=== PATIENT | female | born 1985 | race Caucasian/White ===

== ENCOUNTER 2018-07-05 11:15 | Inpatient (IN) ==
[2018-07-05] MEDS ORDERED: Acetaminophen 325 MG Tablet PO PRN (12:06)
[2018-07-05] MEDS ORDERED: Penicillin G Potassium Inj 5,000,000 UNIT in Sodium Chloride 0.9% Inj 100 ML IV.SIG ONE (12:06)
[2018-07-05] MEDS ORDERED: Penicillin G Potassium Inj 2,500,000 UNIT in Sodium Chlor 0.9% Inj 100 ML IV.SIG ONE (12:06)
--- NOTE | 2018-07-05 12:06 | ED ---
History of Present Illness Primary Care Physician: Angi Umaña MD Chief Complaint: I broke my water History of Present Illness: 33-year-old at 33 weeks presents complaining of spontaneous rupture of membranes after 10 today. Patient failed her 1 hour Glucola was in the process of completing the GTT and then subsequently ruptured membranes before the final collection. Otherwise her had been uneventful. She sees Dr. Bernardo Rubalcava is currently covering. 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 SKIN: Warm and dry. HEAD: Normocephalic and atraumatic. EYES: No scleral icterus. No injection or drainage. ENT: No nasal drainage noted. Mucous membranes pink. Airway patent. NECK: Supple, trachea midline. No JVD. CARDIOVASCULAR: Regular rate and rhythm without murmurs, gallops, or rubs. RESPIRATORY: Breath sounds equal bilaterally. No accessory muscle use. BREASTS: Bilateral exam showed no masses , no retractions, no nipple discharge. ABDOMEN/GI: Abdomen soft, non-tender, bowel sounds present, no rebound, no guarding Gravid to 33 weeks size Fundal Height: 33 GENITOURINARY: External Genitalia: intact and normal in appearance BUS glands: Unremarkable Sterile speculum exam copious amounts of clear amniotic fluid noted consistent with gross rupture Cervix: Moderate (forebag is palpated) Dilatation: 2 Effacement: 50% Station: -3 Presentation: Vertex by palpation Membranes: Grossly ruptured Uterine Contractions: Irregular every 3 FHT's: Category: 1 Variability: Moderate Decels: No EXTREMITIES: No cyanosis or edema. BACK: Nontender without obvious deformity. No CVA tenderness. NEUROLOGICAL: Awake and alert. Motor and sensory grossly within normal limits. Five out of 5 muscle strength in all muscle groups. Normal speech. Assessment and Plan - Diagnosis (1) premature rupture of membranes in third trimester Code(s): O42.913 - premature rupture of membranes, unspecified as to length of time between rupture and onset of labor, third trimester Status: Acute (2) 33 weeks gestation of Code(s): Z3A.33 - 33 weeks gestation of Status: Acute - Plan Discussed with Dr. Rubalcava Plan admission Betamethasone every 12 Magnesium sulfate should contractions continue Antibiotic prophylaxis NICU consultation Accu-Cheks Discharge Plan - Discharge Disposition Patient Disposition: ED Admit(ED Internal Use Only) - Discharge Condition Condition: Stable - Physicians Team ED Provider: Tia Toussaint Primary Care Provider: Angi Umaña - Discharge Instructions Print Language: Armenian
--- NOTE | 2018-07-05 12:21 | P.HPOB ---
[facility] Record Number: [id number] Date of : 89 Patient Status: Inpatient Attending Provider: Carly Rubalcava Date: 07/05/18 11:58 Initialization Date: 07/05/18 11:58 History of Present Illness Primary Care Physician: Angi Umaña MD Chief Complaint: I broke my water History of Present Illness: 33-year-old at 33 weeks presents complaining of spontaneous rupture of membranes after 10 today. Patient failed her 1 hour Glucola was in the process of completing the GTT and then subsequently ruptured membranes before the final collection. Otherwise her had been uneventful. She sees Dr. Bernardo Rubalcava is currently covering. 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 SKIN: Warm and dry. HEAD: Normocephalic and atraumatic. EYES: No scleral icterus. No injection or drainage. ENT: No nasal drainage noted. Mucous membranes pink. Airway patent. NECK: Supple, trachea midline. No JVD. CARDIOVASCULAR: Regular rate and rhythm without murmurs, gallops, or rubs. RESPIRATORY: Breath sounds equal bilaterally. No accessory muscle use. BREASTS: Bilateral exam showed no masses , no retractions, no nipple discharge. ABDOMEN/GI: Abdomen soft, non-tender, bowel sounds present, no rebound, no guarding Gravid to 33 weeks size Fundal Height: 33 GENITOURINARY: External Genitalia: intact and normal in appearance BUS glands: Unremarkable Sterile speculum exam copious amounts of clear amniotic fluid noted consistent with gross rupture Cervix: Moderate (forebag is palpated) Dilatation: 2 Effacement: 50% Station: -3 Presentation: Vertex by palpation Membranes: Grossly ruptured Uterine Contractions: Irregular every 3 FHT's: Category: 1 Variability: Moderate Decels: No EXTREMITIES: No cyanosis or edema. BACK: Nontender without obvious deformity. No CVA tenderness. NEUROLOGICAL: Awake and alert. Motor and sensory grossly within normal limits. Five out of 5 muscle strength in all muscle groups. Normal speech. Assessment and Plan - Diagnosis (1) premature rupture of membranes in third trimester Code(s): O42.913 - premature rupture of membranes, unspecified as to length of time between rupture and onset of labor, third trimester Status: Acute (2) 33 weeks gestation of Code(s): Z3A.33 - 33 weeks gestation of Status: Acute - Plan Discussed with Dr. Rubalcava Plan admission Betamethasone every 12 hours Magnesium sulfate should contractions continue Antibiotic prophylaxis with penicillin G and azithromycin as recommended by ACOG NICU consultation Accu-Cheks SCD's Ultrasound for position and estimated weight Discussed with patient plan of care-discussed with patient complications associated with labor Discharge Plan - Discharge Disposition Patient Disposition: ED Admit(ED Internal Use Only) - Discharge Condition Condition: Stable - Physicians Team ED Provider: Tia Toussaint Primary Care Provider: Angi Umaña - Discharge Instructions Print Language: Amharic
--- NOTE | 2018-07-05 12:23 | P.OBGPN ---
Ultrasound performed S IUP/vertex/posterior placenta/CELESTE 6.9/EFW 4 pounds 11 ounces or 2138 g
[2018-07-05] MEDS: Betamethasone Sod Phos/Acetate Inj 30 MG/5 ML Vial IM SCH (13:28)
[2018-07-05 13:29] LABS: Baso # (Auto) 0.1 th/mm3 (0.0-0.2); Baso % (Auto) 0.4 % (0.0-2.0); Eos # (Auto) 0.2 th/mm3 (0.0-0.4); Eos % (Auto) 1.1 % (0.0-4.0); Hematocrit 34.5 % (35.0-46.0); Hemoglobin 11.8 gm/dL (11.6-15.3); Lymph # (Auto) 2.7 th/mm3 (1.0-4.8); Lymph % (Auto) 20.3 % (9.0-44.0); Mean Corpuscular HGB Conc 34.3 % (32.0-36.0); Mean Corpuscular Hemoglobin 29.3 pg (27.0-34.0); Mean Corpuscular Volume 85.2 fL (80.0-100.0); Mean Platelet Volume 7.6 fL (7.0-11.0); Mono # (Auto) 1.1 th/mm3 (0.0-0.9); Mono % (Auto) 8.4 % (0.0-8.0); Neut # (Auto) 9.2 th/mm3 (1.8-7.7); Neut % (Auto) 69.8 % (16.0-70.0); Platelet Count 255 th/mm3 (150-450); Red Blood Count 4.04 mil/mm3 (4.00-5.30); Red Cell Distribution Width 14.3 % (11.6-17.2); White Blood Count 13.2 th/mm3 (4.0-11.0)
[2018-07-05] MEDS: Azithromycin Inj 500 MG in Sodium Chlor 0.9% Inj 250 ML IV.SIG SCH (13:30)
[2018-07-05 14:07] LABS: Bacteria,Urine Occasional /hpf; Bilirubin,Urine Negative (Negative); Clarity,Urine Cloudy (Clear); Color,Urine Yellow (Yellw/Straw); Glucose,Urine (UA) Negative (Negative); Leukocyte Esterase,Urine Trace (Negative); Nitrite,Urine Negative (Negative); Specific Gravity,Urine 1.011 (1.002-1.035); Squamous Epithelial Cell,Urine 12 /hpf (0-5)
[2018-07-05] MEDS ORDERED: Mag Sulf/Water 4 gm/100 ml 100 ML IV.SIG ONE ×2 (17:34→17:49)
[2018-07-05] MEDS ORDERED: Mag Sulf/Water 40 gm/1000 ml 40 GM/1,000 ML BAG IV.CONT ONE (17:49)
[2018-07-05] MEDS: Mag Sulf/Water 40 gm/1000 ml 40 GM/1,000 ML BAG IV.CONT SCH (18:39)
[2018-07-05] MEDS: Penicillin G Potassium Inj 2,500,000 UNIT in Sodium Chlor 0.9% Inj 100 ML IV.SIG SCH ×2 (18:39→22:03)
[2018-07-05] MEDS: Zolpidem Tartrate 5 MG Tablet PO PRN (22:03)
[2018-07-06] MEDS: Betamethasone Sod Phos/Acetate Inj 30 MG/5 ML Vial IM SCH (03:07)
[2018-07-06] MEDS: Penicillin G Potassium Inj 2,500,000 UNIT in Sodium Chlor 0.9% Inj 100 ML IV.SIG SCH ×6 (03:08→21:57)
[2018-07-06] MEDS: Prenatal Vit/Ca/Iron/Folic Acid Tablet PO SCH (08:42)
--- NOTE | 2018-07-06 11:18 | P.OBANTE ---
Subjective Interval History: Pt doing well, reports continued leaking, occ tightening, no pain, no other co Objective Vital Signs and I&O: Vital Signs 07/05/18 11:45 07/05/18 11:48 07/05/18 13:36 Temperature 98.6 F 98.9 F Pulse Rate 85 75 Respiratory Rate 18 Blood Pressure 123/67 102/84 07/05/18 13:38 07/05/18 18:45 07/05/18 18:47 Temperature 98.6 F Pulse Rate 87 Respiratory Rate 18 18 Blood Pressure 114/78 07/05/18 18:50 07/05/18 18:51 07/05/18 18:57 Temperature Pulse Rate 80 84 Respiratory Rate 18 18 Blood Pressure 122/72 118/70 07/05/18 19:01 07/05/18 19:02 07/05/18 19:58 Temperature Pulse Rate 85 90 78 Respiratory Rate 18 18 Blood Pressure 119/73 108/67 110/70 07/05/18 19:59 07/05/18 22:00 07/05/18 22:04 Temperature 98.4 F 98.5 F Pulse Rate 75 Respiratory Rate 18 Blood Pressure 96/62 L 07/06/18 01:00 07/06/18 02:09 07/06/18 03:00 Temperature 98.4 F Pulse Rate 78 92 H Respiratory Rate 18 Blood Pressure 103/54 L 94/57 L 97/50 L 07/06/18 04:00 07/06/18 05:00 07/06/18 06:00 Temperature Pulse Rate 87 90 Respiratory Rate 16 16 Blood Pressure 103/56 L 98/54 L 07/06/18 06:47 07/06/18 07:00 07/06/18 07:31 Temperature Pulse Rate 85 Respiratory Rate 16 16 Blood Pressure 96/52 L 07/06/18 07:32 07/06/18 08:00 07/06/18 08:41 Temperature 97.9 F Pulse Rate 85 Respiratory Rate 18 Blood Pressure 105/52 L 07/06/18 09:00 07/06/18 09:49 07/06/18 10:00 Temperature 97.7 F Pulse Rate 77 Respiratory Rate 16 Blood Pressure 105/68 Intake & Output 07/05/18 07/06/18 07/06/18 18:59 06:59 18:59 Intake Total 300 / 300 1100 / 1100 Balance 300 / 300 1100 / 1100 Weight 77.111 kg Intake: IV 300 / 300 1100 / 1100 LR 1000 mL Inj 1,000 ML @ 75 1000 / 1000 mls/hr IV.CONT .[id number] [facility] Rx# :[id number] Pfizerpen-G Inj 2,500,000 UNIT 300 / 300 100 / 100 In NS Inj 100 ML @ 200 mls/hr IV.SIG Q4H [facility] Rx#:[id number] Other: Weight On Admission 77.111 kg Lab and Micro Results: Laboratory Results - last 24 hr 07/05/18 07/05/18 07/05/18 12:15 12:35 12:45 WBC 13.2 H RBC 4.04 Hgb 11.8 Hct 34.5 L MCV 85.2 MCH 29.3 MCHC 34.3 RDW 14.3 Plt Count 255 MPV 7.6 Neut % (Auto) 69.8 Lymph % (Auto) 20.3 [place] % (Auto) 8.4 H Eos % (Auto) 1.1 Baso % (Auto) 0.4 Neut # (Auto) 9.2 H Lymph # (Auto) 2.7 [place] # (Auto) 1.1 H Eos # (Auto) 0.2 Baso # (Auto) 0.1 WBC Differential . Differential Comment Auto diff final POC Glucose 108 Urine Color Yellow Urine Clarity Cloudy H Urine pH 8.0 Ur Specific Margaret 1.011 Urine Protein 100 H Urine Glucose (UA) Negative Urine Ketones Negative Urine Occult Blood Moderate H Urine Nitrate Negative Urine Bilirubin Negative Urine Urobilinogen Less than 2 Ur Leukocyte Esterase Trace H Urine RBC 44 H Urine WBC 9 H Ur Squamous Epith Cells 12 Urine Bacteria Occasional H Micro UA Comment Culture indicated Ur Microscopic Review Not Reportable Urine Culture Comments Culture indicated 07/05/18 07/06/18 07/06/18 19:53 03:11 08:00 WBC RBC Hgb Hct MCV MCH MCHC RDW Plt Count MPV Neut % (Auto) Lymph % (Auto) [place] % (Auto) Eos % (Auto) Baso % (Auto) Neut # (Auto) Lymph # (Auto) [place] # (Auto) Eos # (Auto) Baso # (Auto) WBC Differential Differential Comment POC Glucose 129 H 123 H 113 H Urine Color Urine Clarity Urine pH Ur Specific Margaret Urine Protein Urine Glucose (UA) Urine Ketones Urine Occult Blood Urine Nitrate Urine Bilirubin Urine Urobilinogen Ur Leukocyte Esterase Urine RBC Urine WBC Ur Squamous Epith Cells Urine Bacteria Micro UA Comment Ur Microscopic Review Urine Culture Comments Physical Exam: GENERAL: Well-nourished, well-developed patient. CARDIOVASCULAR: Regular rate and rhythm without murmurs, gallops, or rubs. RESPIRATORY: Breath sounds equal bilaterally. No accessory muscle use. ABDOMEN/GI: Abdomen soft, non-tender. Fundus: [-] GENITOURINARY: External Genitalia: intact and normal in appearance Cervix: [-] Dilatation: [-] Effacement: [-] Station: [-] Presentation: [-] Membranes: [-] Uterine Contractions: ctx q 10-15 min FHT's: Category: baseline 150's, reactive, no decels Baseline: [-] Reactive: [-] Variability: [-] Decels: [-] EXTREMITIES: No cyanosis or edema, non-tender, without signs of DVT. Assessment and Plan - Plan SIUP at 33 wks 1 dy with PROM and some labor....responding to magnesium, steroids in x 2 doses, no sign infection, CELESTE 6 cm , vtx on us with good efw....plan is for magnesium until am, then dc...expectant management...fu CELESTE.
[2018-07-06] MEDS: Azithromycin Inj 500 MG in Sodium Chlor 0.9% Inj 250 ML IV.SIG SCH (12:23)
[2018-07-06] MEDS ORDERED: Docusate Sodium 100 MG Capsule PO SCH (13:00)
[2018-07-06] MEDS: Docusate Sodium 100 MG Capsule PO SCH (13:09)
[2018-07-06] MEDS: Mag Sulf/Water 40 gm/1000 ml 40 GM/1,000 ML BAG IV.CONT SCH (14:00)
[2018-07-06] MEDS: Zolpidem Tartrate 5 MG Tablet PO PRN (21:57)
[2018-07-07] MEDS: Penicillin G Potassium Inj 2,500,000 UNIT in Sodium Chlor 0.9% Inj 100 ML IV.SIG SCH ×6 (03:40→23:11)
--- NOTE | 2018-07-07 08:04 | P.OBANTE ---
Subjective Interval History: Pt feeling good, still leaking, no ctxs, good fm Objective Vital Signs and I&O: Vital Signs 07/06/18 08:41 07/06/18 09:00 07/06/18 09:49 Temperature Pulse Rate 77 Respiratory Rate 18 16 Blood Pressure 105/68 07/06/18 10:00 07/06/18 11:00 07/06/18 11:25 Temperature 97.7 F Pulse Rate 87 Respiratory Rate 16 Blood Pressure 102/64 07/06/18 11:27 07/06/18 12:26 07/06/18 13:00 Temperature 98.0 F Pulse Rate 98 H 97 H Respiratory Rate 16 14 Blood Pressure 100/63 97/54 L 07/06/18 14:03 07/06/18 14:05 07/06/18 14:50 Temperature Pulse Rate 105 H 103 H Respiratory Rate 16 Blood Pressure 111/53 L 07/06/18 14:56 07/06/18 16:00 07/06/18 16:58 Temperature 98.6 F Pulse Rate 90 Respiratory Rate 18 Blood Pressure 101/49 L 07/06/18 17:00 07/06/18 17:57 07/06/18 18:01 Temperature 98.3 F Pulse Rate 82 88 Respiratory Rate 16 Blood Pressure 104/56 L 106/62 07/06/18 18:38 07/06/18 19:00 07/06/18 19:52 Temperature Pulse Rate 86 Respiratory Rate 16 16 Blood Pressure 106/65 07/06/18 20:00 07/06/18 21:51 07/06/18 22:00 Temperature 98.3 F Pulse Rate 83 78 75 Respiratory Rate 16 16 Blood Pressure 104/58 L 95/51 L 99/56 L 07/06/18 23:00 07/07/18 00:00 07/07/18 02:00 Temperature Pulse Rate 102 H 96 H 81 Respiratory Rate 16 16 Blood Pressure 90/41 L 92/53 L 94/51 L 07/07/18 03:14 07/07/18 04:00 07/07/18 05:30 Temperature 98.2 F Pulse Rate 76 98 H Respiratory Rate 18 18 Blood Pressure 89/41 L 86/47 L 07/07/18 06:00 07/07/18 06:44 07/07/18 07:11 Temperature Pulse Rate 84 92 H Respiratory Rate 18 16 Blood Pressure 98/55 L 97/48 L Intake & Output 07/06/18 07/07/18 07/07/18 18:59 06:59 18:59 Intake Total 2650 / 2650 1200 / 1200 Balance 2650 / 2650 1200 / 1200 Intake: IV 2650 / 2650 1200 / 1200 LR 1000 mL Inj 1,000 ML @ 75 1000 / 1000 1000 / 1000 mls/hr IV.CONT .[id number] [facility] Rx# :[id number] Magnesium Sulfate/Water 40 gm/ 1000 / 1000 1000 ml Premix 40 gm In 1,000 ml @ 2 GM/HR 50 mls/hr IV.CONT Q24H [facility] Rx#:[id number] Azithromycin Inj 500 MG In NS 250 / 250 Inj 250 ML @ 250 mls/hr IV.SIG Q24H [facility] Rx#:[id number] Pfizerpen-G Inj 2,500,000 UNIT 400 / 400 200 / 200 In NS Inj 100 ML @ 200 mls/hr IV.SIG Q4H [facility] Rx#:[id number] Lab and Micro Results: Laboratory Results - last 24 hr 07/06/18 14:59 POC Glucose 171 H Microbiology 07/05/18 12:45 Urine Culture - Preliminary Clean Catch Urine Immature growth - reincubate Physical Exam: GENERAL: Well-nourished, well-developed patient. CARDIOVASCULAR: Regular rate and rhythm without murmurs, gallops, or rubs. RESPIRATORY: Breath sounds equal bilaterally. No accessory muscle use. ABDOMEN/GI: Abdomen soft, non-tender. Fundus: [-] GENITOURINARY: External Genitalia: intact and normal in appearance Cervix: [-] Dilatation: [-] Effacement: [-] Station: [-] Presentation: [-] Membranes: [-] Uterine Contractions: irregular FHT's: Category:150's reactive, occ variable Baseline: [-] Reactive: [-] Variability: [-] Decels: [-] EXTREMITIES: No cyanosis or edema, non-tender, without signs of DVT. Assessment and Plan - Plan SIUP at 33 wks 2 dy with PROM ....responded to magnesium, steroids in x 2 doses , no sign infection, CELESTE 6 cm , vtx on us with good efw....plan is continued bed rest, intermittent monitoring, serial ultrasounds, expectant management.
[2018-07-07] MEDS: Prenatal Vit/Ca/Iron/Folic Acid Tablet PO SCH (08:05)
[2018-07-07] MEDS: Docusate Sodium 100 MG Capsule PO SCH (08:06)
[2018-07-07] MEDS: Azithromycin Inj 500 MG in Sodium Chlor 0.9% Inj 250 ML IV.SIG SCH (12:12)
[2018-07-08] MEDS: Penicillin G Potassium Inj 2,500,000 UNIT in Sodium Chlor 0.9% Inj 100 ML IV.SIG SCH ×2 (03:46→09:17)
[2018-07-08] MEDS ORDERED: Sod Chloride 0.9% Inj 1,000 ML IV.CONT PRN (04:55)
[2018-07-08] MEDS ORDERED: Naloxone Inj 0.4 MG/ML Vial IV.PUSH PRN ×2 (04:55→07:01)
[2018-07-08] MEDS ORDERED: Oxytocin 30 Units/500ml Premix 30 UNITS/500 ML BAG IV.SIG ONE (04:55)
[2018-07-08] MEDS ORDERED: fentaNYL Citrate Inj 100 MCG/2 ML Ampul IV.PUSH PRN ×2 (04:55)
[2018-07-08] MEDS ORDERED: Sodium Chlor 0.9% Inj 500 ML IV.SIG PRN (04:55)
[2018-07-08] MEDS ORDERED: Citric Acid/Sodium Citrate Liq 30 ML UDC PO SCH (05:00)
[2018-07-08 05:01] LABS: Hematocrit 31.5 % (35.0-46.0); Hemoglobin 10.7 gm/dL (11.6-15.3); Mean Corpuscular Hemoglobin 29.6 pg (27.0-34.0); Mean Corpuscular Volume 87.2 fL (80.0-100.0); Mean Platelet Volume 7.6 fL (7.0-11.0); Platelet Count 238 th/mm3 (150-450); Red Blood Count 3.62 mil/mm3 (4.00-5.30); Red Cell Distribution Width 14.6 % (11.6-17.2); White Blood Count 12.8 th/mm3 (4.0-11.0)
[2018-07-08] MEDS ORDERED: fentaNYL 2MCG-Bupiv 0.125% Epi 150 ML EPIDURAL ONE (05:33)
[2018-07-08] MEDS ORDERED: Lidocaaine 1.5%/Epinephrine 1:200,000 PF Inj 5 ML Amp ONE (06:11)
[2018-07-08] MEDS ORDERED: Sodium Chlor 0.9% Inj 10 ML ONE (06:11)
[2018-07-08] MEDS ORDERED: Lidocaine PF 1% Inj 5 ML Vial ONE (06:11)
[2018-07-08 06:22] LABS: Bacteria,Urine Rare /hpf; Bilirubin,Urine Negative (Negative); Clarity,Urine Clear (Clear); Color,Urine Straw (Yellw/Straw); Glucose,Urine (UA) Negative (Negative); Leukocyte Esterase,Urine Negative (Negative); Nitrite,Urine Negative (Negative); Specific Gravity,Urine 1.005 (1.002-1.035); Squamous Epithelial Cell,Urine 4 /hpf (0-5)
[2018-07-08 06:26] LABS: Amphetamine Urine With Conf Neg (Neg); Benzodiazepine Urine With Conf Neg (Neg); Cocaine Urine With Conf Neg (Neg); Opiates Urine With Conf Neg (Neg)
[2018-07-08 06:31] LABS: Cannabinoid Urine With Conf Neg (Neg)
[2018-07-08] MEDS ORDERED: fentaNYL Citrate Inj 100 MCG/2 ML Ampul EPIDURAL ONE (06:56)
[2018-07-08] MEDS ORDERED: fentaNYL 2MCG-Bupiv 0.125% Epi 150 ML EPIDURAL PRN (06:56)
--- NOTE | 2018-07-08 07:00 | P.OBDELI ---
Weeks Gestation: 33 Patient Started Active Labor: Yes Medical Induction of Labor: No Artificial Rupture of Membrane: No Anesthesia: Epidural Episiotomy: none Vaginal Delivery: Normal Presentation: Occiput anterior Nuchal Cord: None Delayed Cord Clamping (45 sec): Yes Placenta: Spontaneous delivery, Intact, 3 vessel cord Laceration: None Estimated blood loss (mL): 100 Infant: Male
[2018-07-08] MEDS ORDERED: Witch Hazel 50%/Glyderin 12.5% 40 Pad Jar RECTAL PRN (07:01)
[2018-07-08] MEDS ORDERED: Zolpidem Tartrate 5 MG Tablet PO PRN (07:01)
[2018-07-08] MEDS ORDERED: Oxytocin 30 Units/500ml Premix 30 UNITS/500 ML BAG IV.CONT PRN (07:01)
[2018-07-08] MEDS ORDERED: Benzocaine 20% Top Spray 60 ML Can TOPICAL PRN (07:01)
[2018-07-08] MEDS ORDERED: Bisacodyl 10 MG Supp RECTAL PRN (07:01)
[2018-07-08] MEDS: Prenatal Vit/Ca/Iron/Folic Acid Tablet PO SCH (08:07)
[2018-07-08] MEDS: Docusate Sodium 100 MG Capsule PO SCH (08:07)
[2018-07-08] MEDS: Senna/Docusate Sodium 8.6/50 MG Tablet PO SCH ×3 (09:18→20:00)
[2018-07-08] MEDS ORDERED: Diphtheria/Tetanus/Pertussis Vaccine Inj 0.5 ML Syringe IM ONE (16:00)
[2018-07-08] MEDS ORDERED: Measles/Mumps/Rubella Vaccine Inj 0.5 ML Vial SQ ONE (16:00)
[2018-07-08] MEDS: Acetaminophen 325 MG Tablet PO PRN (20:05)
[2018-07-09] MEDS: Acetaminophen 325 MG Tablet PO PRN ×2 (04:33→12:55)
[2018-07-09] MEDS: Docusate Sodium 100 MG Capsule PO SCH (08:27)
[2018-07-09] MEDS: Prenatal Vit/Ca/Iron/Folic Acid Tablet PO SCH (08:27)
[2018-07-09] MEDS: Senna/Docusate Sodium 8.6/50 MG Tablet PO SCH (08:28)
--- NOTE | 2018-07-09 10:38 | P.PNOB ---
Subjective Post day: 1 Interval history: doing well Objective Vital Signs/I&O: Vital Signs 07/08/18 20:00 07/09/18 08:00 Temperature 98.5 F 98.3 F Pulse Rate 72 69 Respiratory Rate 18 18 Blood Pressure 126/69 102/64 Result Diagrams: 07/08/18 04:30 Objective Remarks: GENERAL: Well-nourished, well-developed patient. ABDOMEN/GI: Abdomen soft, non-tender. Fundus: Firm, non-tender at umbilicus. GENITOURINARY: Light to moderate bleeding. EXTREMITIES: No cyanosis or edema, non-tender, without signs of DVT. Medications and IVs: Active Medications Acetaminophen (Tylenol) 650 mg PO Q4H PRN PRN Reason: PAIN SCALE 1 TO 2 Last Admin: 07/09/18 04:33 Dose: 650 mg Al Hydroxide/Mg Hydroxide (Milk Of Magnesia Liq) 30 ml PO Q12H PRN PRN Reason: Mild Constipation Benzocaine (Americaine 20% [place]) 1 spray TOPICAL Q4H PRN PRN Reason: For Perineum Discomfort Bisacodyl (Dulcolax Supp) 10 mg RECTAL DAILY PRN PRN Reason: SEVERE CONSITIPATION Calcium Gluconate (Calcium Gluconate Inj) 1 gm IV.PUSH ONCE PRN PRN Reason: Magnesium Toxicity Citric Acid/Sodium Citrate (Sodium Citrate/Citric Acid Liq) 30 ml PO [facility] Stop: 07/12/18 04:59 Docusate Sodium (Colace) 100 mg PO DAILY [facility] Last Admin: 07/09/18 08:27 Dose: 100 mg Fentanyl Citrate (Fentanyl Inj) 100 mcg IV.PUSH Q1H PRN PRN Reason: PAIN SCALE 6 TO 10 Fentanyl Citrate (Fentanyl Inj) 50 mcg IV.PUSH Q1H PRN PRN Reason: Pain Scale 3 - 5 Azithromycin 500 mg/ Sodium (Chloride) 250 mls @ 250 mls/hr IV.SIG Q24H [facility] Last Admin: 07/07/18 12:12 Dose: 250 mls/hr Penicillin G Potassium 2,500, (000 unit/ Sodium Chloride) 100 mls @ 200 mls/hr IV.SIG Q4H [facility] Last Admin: 07/08/18 09:17 Dose: Not Given Lactated Ringer's (Lr 1000 Ml Inj) 1,000 mls @ 3,000 mls/hr IV.SIG UNSCH PRN PRN Reason: compromise or epidural Lactated Ringer's (Lr 1000 Ml Inj) 1,000 mls @ 125 mls/hr IV.CONT .Q8H [facility] Last Admin: 07/08/18 06:15 Dose: 125 mls/hr Sodium Chloride (Ns Inj) 500 mls @ 1,000 mls/hr IV.SIG UNSCH PRN PRN Reason: SEE LABEL COMMENTS Sodium Chloride (Ns Inj) 1,000 mls @ 100 mls/hr IV.CONT .Q10H PRN PRN Reason: SEE LABEL COMMENTS Fentanyl/Bupivacaine/Sodium Chlor (Fentanyl 2 Mcg-Bupiv 0.125% Epi) 150 mls @ 10 mls/hr EPIDURAL PRN PRN PRN Reason: for Labor Pain Last Admin: 07/08/18 07:11 Dose: 10 mls/hr Oxytocin (Pitocin 30 Units/Ns 500 Ml Premix) 30 units in 500 mls @ 100 mls/hr IV.CONT UNSCH PRN PRN Reason: Heavy bleeding Ibuprofen (Motrin) 800 mg PO Q8H PRN PRN Reason: For Cramping Last Admin: 07/09/18 04:33 Dose: 800 mg Lactulose (Lactulose Liq) 30 ml PO DAILY PRN PRN Reason: SEVERE CONSITIPATION Lidocaine HCl (Xylocaine 1% Inj) 0.1 ml I-DERMAL PRN PRN PRN Reason: For IV start Stop: 07/11/18 04:54 Lidocaine HCl (Xylocaine 1% Inj) 10 ml INFILTRATN PRN PRN PRN Reason: For episiotomy repair Stop: 07/10/18 04:54 Mineral Oil (Muri-Lube Oil) 10 ml TOPICAL PRN PRN PRN Reason: PRN perineal massage Naloxone HCl (Narcan Inj) 0.1 mg IV.PUSH Q2M PRN PRN Reason: for opiate reversal Naloxone HCl (Narcan Inj) 0.1 mg IV.PUSH Q2M PRN PRN Reason: for opiate reversal Ondansetron HCl (Zofran Odt) 4 mg PO Q6H PRN PRN Reason: NAUSEA OR VOMITING Oxycodone/Acetaminophen (Percocet 5/325 Mg) 1 tab PO Q4H PRN PRN Reason: PAIN SCALE 3 TO 5 Oxycodone/Acetaminophen (Percocet 5/325 Mg) 2 tab PO Q4H PRN PRN Reason: PAIN SCALE 6 TO 10 Vit/Calcium/Iron/Folic Ac (Stuartnatal Plus 3) 1 tab PO DAILY [facility] Last Admin: 07/09/18 08:27 Dose: 1 tab Senna/Docusate Sodium (Marline-Colace) 1 tab PO BID [facility] Last Admin: 07/09/18 08:28 Dose: Not Given Sennosides (Senokot) 17.2 mg PO Q12H PRN PRN Reason: Moderate Constipation Sodium Chloride (Ns Flush) 2 ml IV.FLUSH BID [facility] Last Admin: 07/09/18 08:27 Dose: Not Given Sodium Chloride (Ns Flush) 2 ml IV.FLUSH PRN PRN PRN Reason: FLUSH AFTER USING IV ACCESS Witch Maria Fernanda/Glycerin (Tucks Pads) 1 applicatio RECTAL QID PRN PRN Reason: HEMORRHOIDS Zolpidem Tartrate (Ambien) 5 mg PO HS PRN PRN Reason: SLEEP Assessment and Plan - Diagnosis (1) (spontaneous vaginal delivery) Code(s): O80 - Encounter for full-term uncomplicated delivery Status: Acute - Plan SIUP at 33 wks 2 dy with PROM ....responded to magnesium, steroids in x 2 doses , no sign infection, CELESTE 6 cm , vtx on us with good efw....plan is continued bed rest, intermittent monitoring, serial ultrasounds, expectant management.
[2018-07-09] MEDS ORDERED: Diphtheria/Tetanus/Pertussis Vaccine Inj 0.5 ML Syringe IM ONE (11:00)
[2018-07-09 12:50] VITALS: BP 104/65; PULSE 59; RESP 16; TEMP 98.4
== END 2018-07-09 16:18 | disposition home or self-care (01) | DRG 807 ==
LOC: HOBED 11:15 → H2E 11:50 → H1EA 07-08 09:10
PROVIDERS: ADMIT Obstetrics & Gynecology; ATTEND Obstetrics & Gynecology
CPT/HCPCS: 59025; 76815; 80101; 80301; 80307; 81001; 82948; 82962; 85025; 85027; 85461; 86077; 86850; 86870; 86900; 86901; 86920; 86922; 87086; 90384; 90715; 96372; 99285; G0431; G0479; G0481; G0483; J0456; J0702; J2540; J2590; J2790; J3475; J7050; J7120